=== PATIENT | female | born 1990 | race Caucasian/White ===

== ENCOUNTER 2017-10-13 11:16 | Emergency (ER) | payer OTHER ==
[2017-10-13 11:24] VITALS: BP 111/72; PULSE 108; TEMP 98.7; BMI 24.1
--- NOTE | 2017-10-13 11:34 | PDOC ---
History of Present Illness - General Chief Complaint: Cold Symptoms Stated Complaint: COUGH,FEVER,CHILLS Time Seen by Provider: 10/13/17 11:29 History Source: Patient Exam Limitations: No Limitations - History of Present Illness Timing/Duration: 24 hours, intermittent Severity: moderate Associated Symptoms: reports: cough, fever/chills Past History - Travel Traveled outside of the country in the last 30 days: No Close contact w/someone who was outside of country & ill: No - Past Medical History Allergies/Adverse Reactions: Allergies Allergy/AdvReac Type Severity Reaction Status Date / Time Penicillins Allergy Verified 10/13/17 11:17 Home Medications: Ambulatory Orders Albuterol Sulfate Inhaler - [Ventolin Hfa Inhaler -] 1 puff IH PRN PRN 10/13/17 Budesonide [Pulmicort 0.25 mg Nebulizer -] 1 neb NEB ASDIR 10/13/17 Ipratropium/Albuterol Sulfate [Combivent Respimat Inhal [place]] 4 gm IH ASDIR 03/23 Methylphenidate HCl [Ritalin] 10 mg PO DAILY 10/13/17 Omeprazole Magnesium [Prilosec Otc] 20 mg PO DAILY 10/13/17 Oseltamivir Phosphate [Tamiflu] 75 mg PO BID #10 capsule 10/13/17 Prednisone 10 mg PO AM #1 tab.ds.pk 10/13/17 Tiotropium [place] [Spiriva] 1 inh IH DAILY 10/13/17 Venlafaxine HCl ER [Effexor Xr -] 150 mg PO DAILY 10/13/17 Asthma: Yes (2 years ago has been intubated at [facility] COPD: Yes Psychiatric Problems: Yes - Suicide/Smoking/Psychosocial Hx Smoking History: Never smoked Hx Alcohol Use: No Drug/Substance Use Hx: No Substance Use Type: None Review of Systems - Review of Systems Able to Perform ROS?: Yes Is the patient limited [place] proficient: Yes Constitutional: Yes: Symptoms Reported, Fever, Malaise HEENTM: Yes: See HPI, Throat Pain Respiratory: Yes: Cough Cardiac (ROS): No: Symptoms Reported, See HPI, Chest Pain, Edema, Irregular Heart Rate, Lightheadedness, Palpitations, Syncope, Chest Tightness, Other ABD/GI: No: Symptoms Reported, See HPI, Abdominal Distended, Abd. Pain w/ defecation, Blood Streaked Bowels, Constipated, Diarrhea, Difficulty Swallowing , Nausea, Poor Appetite, Poor Fluid Intake, Rectal Bleeding, Vomiting, Indigestion, Abdominal cramping, Tarry Stools, Other Musculoskeletal: Yes: Muscle Pain Integumentary: No: Symptoms Reported, See HPI, Bruising, Change in Color, Change in Hair/Nails, Dryness, Erythema, Flushing, Lesions, Lumps, Pallor, Pruritus, Rash, Sweating, Other All Other Systems: Reviewed and Negative *Physical Exam - Vital Signs Last Vital Signs Temp Pulse Resp BP Pulse Ox 98.7 F 108 H 18 111/72 97 10/13/17 11:17 10/13/17 11:17 10/13/17 11:17 10/13/17 11:17 10/13/17 11:17 - Physical Exam General Appearance: Yes: Nourished, Mild Distress HEENT: positive: MIGUEL, Pharyngeal Erythema Neck: positive: Supple, Lymphadenopathy (R), Lymphadenopathy (L) Respiratory/Chest: positive: Wheezing (Few wheezees both lungs). negative: Respiratory Distress, Accessory Muscle Use Cardiovascular: positive: Regular Rhythm Extremity: positive: Normal Capillary Refill Integumentary: positive: Normal Color, Dry, Warm Neurologic: positive: Fully Oriented, Alert, Normal Mood/Affect *DC/Admit/Observation/Transfer Diagnosis at time of Disposition: Viral syndrome, Asthma - Discharge Dispostion Disposition: HOME Condition at time of disposition: Stable Admit: No - Prescriptions Prescriptions: Oseltamivir Phosphate [Tamiflu] 75 mg PO BID #10 capsule Prednisone 10 mg PO AM #1 tab.ds.pk - Referrals - Patient Instructions Printed Discharge Instructions: How to Avoid a Cold or Flu, DI for Viral Upper Respiratory Infection -- Adult - Post Discharge Activity Forms/Work/School Notes: Back to School
[2017-10-13] MEDS ORDERED: OSELTAMIVIR PHOSPHATE 75 MG CAPSULE PO ONE (11:51)
[2017-10-13] MEDS ORDERED: predniSONE 20 MG TABLET (UD) PO ONE (11:52)
[2017-10-13] MEDS ORDERED: OSELTAMIVIR PHOSPHATE 75 MG CAPSULE ONE (12:00)
[2017-10-13] MEDS ORDERED: predniSONE 20 MG TABLET (UD) ONE (12:00)
== END 2017-10-13 12:14 | disposition home or self-care (01) ==
LOC: FER 11:16
DX: B34.9 Viral infection, unspecified (principal); J45.909 Unspecified asthma, uncomplicated; F99 Mental disorder, not otherwise specified
CPT/HCPCS: 99281-25

== ENCOUNTER 2019-06-18 20:19 | Emergency (ER) | payer OTHER ==
[2019-06-18 20:37] VITALS: BP 117/77; PULSE 97; TEMP 97.9; BMI 28.2
[2019-06-18 21:05] LABS: AMORP URATES 1+ /hpf (NONE SEEN); EPITHELIAL CELLS MODERATE /hpf
[2019-06-18] MEDS ORDERED: KETOROLAC TROMETHAMINE 60 MG/2 ML VIAL ONE (22:08)
[2019-06-18] MEDS ORDERED: KETOROLAC TROMETHAMINE 60 MG/2 ML VIAL IM ONE (22:08)
--- NOTE | 2019-06-19 04:38 | PDOC ---
Documentation entered by Yuki Matthew SCRIBE, acting as scribe for Giovana Luz MD. Giovana Luz MD: This documentation has been prepared by the maria [email or web address] Lincy, SCRIBE, under my direction and personally reviewed by me in its entirety. I confirm that the documentation accurately reflects all work, treatment, procedures, and medical decision making performed by me. History of Present Illness - General Chief Complaint: Pain, Acute Stated Complaint: RIGHT FLANK PAIN ON AND OFF X ONE MONTH Time Seen by Provider: 06/18/19 20:20 History Source: Patient Exam Limitations: No Limitations - History of Present Illness Initial Comments: 06/18/19 21:20 The patient is a 28-year-old female with a past medical history significant for asthma (last flare-up 6 months ago, was on ECMO life support and intubated; currently she has baseline shortness of breath and wheezing) who presents to the emergency department with right flank pain. The patient reports she woke up this morning with an intermittent sharp/stabbing pain to the right flank region , thats aggravated with deep breathing. The patient denies any relief with heat or different sitting positions. The patient reports similar pain about a month ago, which self resolved, however, that presentation wasnt this severe. The patient reports associated symptoms of right hip pain, vaginal itching, and burning. The patient reports being worked up for the vaginal symptoms about a month ago, which were unremarkable. The patient reports a hx of ovarian cyst, denies a similar presentation. Denies a history of kidney stones. Denies fever, chills, worsening shortness of breath, dysuria, or hematuria. 06/18/19 21:55 Past History - Past Medical History Allergies/Adverse Reactions: Allergies Allergy/AdvReac Type Severity Reaction Status Date / Time Penicillins Allergy Verified 06/18/19 20:20 Home Medications: Ambulatory Orders Albuterol Sulfate Inhaler - [Ventolin Hfa Inhaler -] 1 puff IH PRN PRN 10/13/17 Budesonide [Pulmicort 0.25 mg Nebulizer -] 1 neb NEB ASDIR 10/13/17 Ipratropium/Albuterol Sulfate [Combivent Respimat Inhal [place]] 4 gm IH ASDIR 03/23 Omeprazole Magnesium [Prilosec Otc] 40 mg PO DAILY 10/13/17 Prednisone 10 mg PO AM #1 tab.ds.pk 10/13/17 Tiotropium [place] [Spiriva] 1 inh IH DAILY 10/13/17 Venlafaxine HCl ER [Effexor Xr -] 150 mg PO DAILY 10/13/17 Diclofenac Sodium [Voltaren -] 75 mg PO BID PRN #20 tablet. 06/18/19 Asthma: Yes (2 years ago has been intubated at [facility]) COPD: Yes Psychiatric Problems: Yes Other medical history: NARCOLEPSY - Psycho Social/Smoking Cessation Hx Smoking History: Never smoked Have you smoked in the past 12 months: No Information on smoking cessation initiated: No Hx Alcohol Use: No Drug/Substance Use Hx: No Substance Use Type: None Review of Systems - Review of Systems Able to Perform ROS?: Yes Comments:: 06/18/19 21:20 CONSTITUTIONAL: Pt denies Fever, Chills, weakness. HEENT: denies vision changes, sore throat RESPIRATORY: Denies cough, sob, hemoptysis CARDIAC: denies chest pain, palpitations, lightheadedness, leg swelling ABD/GI: denies abd pain, nausea, vomiting, blood per rectum, melena, diarrhea : +vaginal itching and burning. denies dysuria, frequency, discharge MSK: +right flank pain, right hip pain. Denies upper or left side back pain, joint swelling SKIN: denies bruising, erythema, rash NEUROLOGICAL: denies headache, numbness, focal weakness, tingling, ataxia, weakness HEMATOLOGICAL: denies anemia, easy bruising, easy bleeding *Physical Exam - Vital Signs Last Vital Signs Temp Pulse Resp BP Pulse Ox 97.9 F 97 H 18 117/77 96 06/18/19 20:30 06/18/19 20:30 06/18/19 20:30 06/18/19 20:30 06/18/19 20:30 - Physical Exam Comments: 06/18/19 21:21 GENERAL: The patient is awake, alert, and fully oriented, in no acute distress. HEAD: Normal with no signs of trauma. EYES: Pupils equal, round and reactive to light, extraocular movements intact, sclera anicteric, conjunctiva clear with no pallor. NECK: Normal range of motion, supple without lymphadenopathy, JVD, or masses. LUNGS: +bilateral expiratory wheezing equal on right and left. HEART: Regular rate and rhythm, normal S1 and S2 without murmur or rub. ABDOMEN: +right CVA and right flank tenderness, minimal RLQ tenderness, no masses. No rebound, no involuntary guarding. EXTREMITIES: Normal range of motion, no edema. No clubbing or cyanosis. No cords, erythema, or tenderness. NEUROLOGICAL: Cranial nerves II through XII grossly intact. Normal speech, normal gait. PSYCH: Normal mood, normal affect. SKIN: Warm, Dry, normal turgor, no rashes or lesions noted. ED Treatment Course - ADDITIONAL ORDERS Additional order review: Laboratory Results 06/18/19 06/18/19 20:48 20:48 Urine Color Yellow Urine Appearance Slightly Urine pH 6.0 Urine Protein 1+ H Urine Glucose (UA) Negative Urine Ketones 1+ H Urine Blood Negative Urine Nitrite Negative Urine Bilirubin 1+ H Urine Urobilinogen 0.2 Ur Leukocyte Esterase 1+ Urine HCG, Qual Negative - RADIOLOGY Radiology Studies Ordered: Category Date Time Status SPIRAL- RENAL-STONE CT [CT] Stat CT Scan 06/18/19 21:00 Taken ED Progress Note - Progress Note Progress Note: As noted above, this 28-year-old woman with a history of asthma presents with few week history of intermittent right flank pain, much more severe tonight. No history of overuse or trauma. Patient states that pain is sharp and extends to right lower quadrant of abdomen. She has no clear symptoms of UTI. Exam as noted. Although urinalysis shows no evidence of hematuria, because of the pattern and character of the pain the patient is experiencing, noncontrast renal stone protocol CT performed to evaluate for renal stones or other urinary acute pathology. Abdominal/pelvic renal stone protocol CT preliminary interpretation by Imaging executive search consultant: No evidence of hydronephrosis or hydroureter. No evidence of impacted renal stone. No other acute pathology evident. Results discussed with the patient. Clinical presentation most consistent with musculoskeletal etiology, most likely external oblique abdominal wall muscle strain. The patient states that because she has GERD, she keeps her adjustable bed with the head of the bed elevated. She believes that she has had more lower back and flank discomfort since she has had the bed adjusted this way. The patient has had both physical therapy and orthopedic care in the past and can follow-up with both Meanwhile, Toradol 60 mg IM given. Diclofenac 75 mg twice a day (#20) as needed sent to her pharmacy. She should plan on following up with her general medical doctor within the next 3 to 4 days (as well as orthopedist/physical therapy as needed for persistent pain). She should return to the emergency room if she has persistent, severe pain or develops fever/vomiting Discharge - Discharge Information Problems reviewed: Yes Clinical Impression/Diagnosis: Abdominal muscle strain Qualifiers: Encounter type: initial encounter Qualified Code(s): S39.011A - Strain of muscle, fascia and tendon of abdomen, initial encounter Condition: Stable Disposition: HOME - Additional Discharge Information Prescriptions: Diclofenac Sodium [Voltaren -] 75 mg PO BID PRN #20 tablet.[address] GARCIA Reason: Pain - Follow up/Referral - Patient Discharge Instructions Patient Printed Discharge Instructions: Abdominal Muscle Strain Additional Instructions: local warmth to area of muscle strain as needed Diclofenac 75mg twice a day as needed ; take with food followup with your orthopedist and your physical therapist as discussed followup with your general doctor within 3-4 days return to ER if you have persistent, severe pain - Post Discharge Activity
== END 2019-06-18 22:24 | disposition home or self-care (01) ==
LOC: FER 20:19
PROC: 3E0233Z Introduction of Anti-inflammatory into Muscle, Percutaneous Approach (ICD-10-PCS; principal; 2019-06-18)
DX: S39.011A Strain of muscle, fascia and tendon of abdomen, initial encounter (principal); Z88.0 Allergy status to penicillin; J45.909 Unspecified asthma, uncomplicated
CPT/HCPCS: 74176-TC; 81003; 81015; 84703; 87086; 99282-25